=== PATIENT | female | born 1965 | race Caucasian/White ===

== ENCOUNTER 2018-12-14 08:18 | Emergency (ER) | payer BC ==
[2018-12-14] MEDS ORDERED: Ibuprofen TAB* 400 MG PO ONE (08:58)
[2018-12-14 09:04] LABS: Rapid Strep Molecular Negative (Negative)
--- NOTE | 2018-12-14 09:05 | ED ---
HPI Febrile Illness - HPI Summary HPI Summary: This patient is a 53 year old female presenting to [facility] with a chief complaint of sore throat for the last 2 days. The patient reports fever, chills, and cough. Pt denies any erythema of eyes, CP, SOB, abdominal pain, N/V, dysuria, hematuria, myalgia, edema, rash, or dizziness. The patient denies any pertinent medical history. The patient states she received a flu shot this year, and states she does not know of anyone around here that is sick. She is not aware of any drug allergies. The patient rates her throat pain 7/10 in severity. Bupropion XL* [Wellbutrin XL *] 300 mg PO DAILY 12/14/18 [History Confirmed 05/25] Calcium Carbonate [Calcium] 500 mg PO DAILY 12/14/18 [History Confirmed 12/14/18 ] Cholecalciferol TAB* [Vitamin D TAB*] 3,000 unit PO DAILY 12/14/18 [History Confirmed 12/14/18] Cyanocobalamin TAB* [Vitamin B12 TAB*] 1,000 mcg PO DAILY 12/14/18 [History Confirmed 12/14/18] Multivitamin [Multivitamins] 1 cap PO DAILY 12/14/18 [History Confirmed 12/14/18 ] Vortioxetine Hydrobromide [Brintellix] 10 mg PO DAILY 12/14/18 [History Confirmed 12/14/18] - History of Current Complaint Chief Complaint: EDFluSymptoms Time Seen by Provider: 12/14/18 08:35 Hx Obtained From: Patient Onset/Duration: Started Days Ago Pain Intensity: 7 Pain Scale Used: 0-10 Numeric Associated Signs and Symptoms: Chills, Cough, Sore Throat - Allergy/Home Medications Allergies/Adverse Reactions: Allergies Allergy/AdvReac Type Severity Reaction Status Date / Time No Known Allergies Allergy Verified 12/14/18 08:23 Home Medications: Home Medications Bupropion XL* [Wellbutrin XL *] 300 mg PO DAILY 12/14/18 [History Confirmed 05/25] Calcium Carbonate [Calcium] 500 mg PO DAILY 12/14/18 [History Confirmed 12/14/18 ] Cholecalciferol TAB* [Vitamin D TAB*] 3,000 unit PO DAILY 12/14/18 [History Confirmed 12/14/18] Cyanocobalamin TAB* [Vitamin B12 TAB*] 1,000 mcg PO DAILY 12/14/18 [History Confirmed 12/14/18] Multivitamin [Multivitamins] 1 cap PO DAILY 12/14/18 [History Confirmed 12/14/18 ] Vortioxetine Hydrobromide [Brintellix] 10 mg PO DAILY 12/14/18 [History Confirmed 12/14/18] PMH/Surg Hx/FS Hx/Imm Hx Endocrine/Hematology History: Denies: Hx Diabetes Cardiovascular History: Denies: Hx Coronary Artery Disease Infectious Disease History: No Infectious Disease History: Denies: Traveled Outside the [place] in Last 30 Days - Family History Known Family History: Negative: Diabetes - Social History Alcohol Use: Rare Substance Use Type: Reports: None Smoking Status (MU): Never Smoked Tobacco Review of Systems Positive: Fever, Chills Negative: Erythema Positive: Sore Throat Negative: Chest Pain Positive: Cough Negative: Abdominal Pain, Vomiting, Nausea Negative: dysuria, hematuria Negative: Myalgia, Edema Negative: Rash Neurological: Other - Neg: Dizziness All Other Systems Reviewed And Are Negative: No Physical Exam - Summary Physical Exam Summary: Constitutional: Well-developed, Well-nourished, Alert. (-) Distressed Skin: Warm, Dry HENT: Normocephalic; Atraumatic Eyes: Conjunctiva normal Neck: Musculoskeletal ROM normal neck. (-) JVD, (-) Stridor, (-) Tracheal deviation Cardio: Rhythm regular, rate normal, Heart sounds normal; Intact distal pulses; The pedal pulses are 2+ and symmetric. Radial pulses are 2+ and symmetric. (-) Murmur Pulmonary/Chest wall: Effort normal. (-) Respiratory distress, (-) Wheezes, (-) Rales Abd: Soft, (-) tenderness, (-) Distension, (-) Guarding, (-) Rebound Musculoskeletal: (-) Edema Lymph: (-) Cervical adenopathy Neuro: Alert, Oriented x3 Psych: Mood and affect Normal Triage Information Reviewed: Yes Vital Signs On Initial Exam: Initial Vitals Temp Pulse Resp BP Pulse Ox 97.1 F 82 16 146/97 93 12/14/18 08:21 12/14/18 08:21 12/14/18 08:21 12/14/18 08:21 12/14/18 08:21 Vital Signs Reviewed: Yes Diagnostics - Vital Signs Vital Signs Temp Pulse Resp BP Pulse Ox 12/14/18 08:21 97.1 F 82 16 146/97 93 - Laboratory Lab Statement: Any lab studies that have been ordered have been reviewed, and results considered in the medical decision making process. Course/Dx - Course Course Of Treatment: This patient is a 53 year old female presenting to [facility] with a chief complaint of sore throat for the last 2 days. Influenza A, Influenza B, and Group A Strep tests were unremarkable. Pollen counts are high so we will be giving her Claritin to take 10 mg/day for 7 days due to possible seasonal allergies. The patient will be discharged and was advised to follow up with her PCP in [place] and she is agreeable with this plan. - Diagnoses Provider Diagnoses: Upper respiratory infection Discharge - Sign-Out/Discharge Documenting (check all that apply): Patient Departure - Discharge Patient Received Moderate/Deep Sedation with Procedure: No - Discharge Plan Condition: Stable Disposition: HOME Patient Education Materials: Upper Respiratory Infection (ED) Additional Instructions: Follow up with your primary care provider in [place] in 2-3 days. Return to ED with any new or worsening symptoms. Take OTC Claritin (Loratadine) 10 mg/day for 7 days for allergy relief. - Attestation Statements Document Initiated by Scribe: Yes Documenting Scribe: James West Provider For Whom Scribe is Documenting (Include Credential): Clifton Kowalski MD Scribe Attestation: James Avila, scribed for Clifton Kowalski MD on 12/14/18 at 0936. Status of Scribe Document: Ready
[2018-12-14 09:12] LABS: Influenza A Molecular NEGATIVE (Negative); Influenza B Molecular NEGATIVE (Negative)
[2018-12-14 10:14] VITALS: BP 133/78
== END 2018-12-14 10:13 | disposition home or self-care (01) ==
LOC: ED 08:18
DX: J06.9 Acute upper respiratory infection, unspecified (principal)
CPT/HCPCS: 87651; 99282; A9270-GY